=== PATIENT | male | born 1980 | race Two or more races ===

== ENCOUNTER 2016-08-11 00:43 | Emergency (ER) | payer OTHER ==
[~2016-08-11] VITALS: Ht 175.3 cm; Wt 83.9 kg
[~2016-08-11 00:43] MED LIST: FLONASE ALLERG9.9 ML NS; PRILOSEC OTC20 MG ORAL
[2016-08-11] MEDS ORDERED: Ketorolac 30mg Inj IV ONE (01:00)
[2016-08-11 01:25] LABS: APPEARANCE,URINE CLEAR; KETONES,URINE NEGATIVE (NEGATIVE); LEUKOCYTE ESTERASE ,URINE NEGATIVE (NEGATIVE); NITRITE,URINE NEGATIVE (NEGATIVE); PH,URINE 7 (4.5-8.0); PROTEIN,URINE NEGATIVE (NEGATIVE); UROBILINOGEN,URINE NORMAL MG/DL (0.0-1.0)
[2016-08-11 01:29] LABS: EOSINOPHILS % (AUTO) 0.9 % (0.0-3.0); LYMPHOCYTES % (AUTO) 16.3 % (20.0-45.0); MEAN CORPUSCULAR HGB CONC 34.5 G/DL (32.0-36.0); MEAN CORPUSCULAR VOLUME 87 FL (80-99); MEAN PLATELET VOLUME 6.4 FL (6.5-10.1); MONOCYTES % (AUTO) 4.4 % (1.0-10.0); NEUTROPHILS % (AUTO) 77.4 % (45.0-75.0); PLATELET COUNT 229 K/UL (150-450); RED BLOOD COUNT 4.72 M/UL (4.70-6.10); RED CELL DISTRIBUTION WIDTH 11.1 % (11.6-14.8); WHITE BLOOD COUNT 10.3 K/UL (4.8-10.8)
[2016-08-11 01:30] VITALS: BP 129/85
[2016-08-11 01:40] LABS: ALANINE AMINOTRANSFERASE 25 U/L (3-41); ALBUMIN/GLOBULIN RATIO 1.8 (1.0-2.7); ANION GAP 17 (5-15); ASPARTATE AMINO TRANSFERASE 28 U/L (5-40); CALCIUM 9.2 mg/dL (8.6-10.2); CARBON DIOXIDE 23 mEQ/L (20-30); CHLORIDE 99 mEQ/L (98-107); CREATININE 0.9 mg/dL (0.7-1.2); GLOMERULAR FILTRATION RATE > 60 mL/min (>60); HEMOLYSIS 5; LIPASE 115 U/L (< 60); POTASSIUM 3.7 mEQ/L (3.4-4.9); SODIUM 139 mEQ/L (135-145); TOTAL PROTEIN 6.6 g/dL (6.6-8.7)
[2016-08-11 01:43] LABS: BACTERIA,URINE OCCASIONAL /HPF; SQUAMOUS EPITHELIAL CELL,UR OCCASIONAL /LPF (NONE/OCC); WBC,URINE 0-2 /HPF (0 - 0)
[2016-08-11] MEDS ORDERED: Morphine Sulfate 4mg/ml Inj IVP ONE (02:00)
[2016-08-11] MEDS ORDERED: Mylanta II UD 30ml ORAL ONE (02:00)
[2016-08-11] MEDS ORDERED: Lidocaine 2% Visc 15ml soln ORAL ONE (02:00)
--- NOTE | 2016-08-11 02:01 | Emergency Room Report ---
History of Present Illness General Chief Complaint: Dyspnea/Respdistress Source: Patient Present Illness HPI This is a 36-year-old male with no cerebrovascular medical history. He presents with chief complaint of abdominal pain with vomiting and diarrhea. Onset for last 2-3 days. Initially was diarrhea but now mostly vomiting. He said is retching. Unable to keep anything down. [place] weak. Now complaining of burning sensation of his chest into his throat. Pain is 9/10. No bloody emesis. No bloody diarrhea. Denies any other complaint. Allergies: Coded Allergies: NO KNOWN ALLERGIES (Verified Allergy, Unknown, 08/21/15) Patient History Past Medical History: see triage record, old chart reviewed Past Surgical History: none Pertinent Family History: none Social History: Denies: smoking Immunizations: other Reviewed Nursing Documentation: PMH: Agreed, PSxH: Agreed Nursing Documentation-PMH Past Medical History: No Stated History Hx Cardiac Problems: No Hx Cancer: No Hx Gastrointestinal Problems: Yes - HEART BURN Hx Neurological Problems: No Review of Systems Eye: Denies: blurred vision, eye pain ENT: Denies: ear pain, nose congestion, throat swelling Respiratory: Denies: cough, shortness of breath Cardiovascular: Denies: chest pain, palpitations Gastrointestinal: Reports: abdominal pain, diarrhea, nausea, vomiting Musculoskeletal: Denies: back pain, joint pain Skin: Denies: rash Neurological: Denies: headache, numbness Endocrine: Denies: increased thirst, increased urine Hematologic/Lymphatic: Denies: easy bruising All Other Systems: negative except mentioned in HPI Physical Exam Vital Signs Date Time Temp Pulse Resp B/P Pulse Ox O2 Delivery O2 Flow Rate FiO2 08/11/16 00:50 98.4 69 14 129/85 99 Room Air vitals normal Sp02 EP Interpretation: reviewed, normal General Appearance: well appearing, alert, mild distress - From pain Head: normocephalic, atraumatic Eyes: bilateral eye EOMI, bilateral eye PERRL ENT: hearing grossly normal, normal pharynx Neck: full range of motion, supple, no meningismus Respiratory: chest non-tender, lungs clear, normal breath sounds Cardiovascular #1: regular rate, rhythm, no murmur Gastrointestinal: normal bowel sounds, no mass, no organomegaly, no bruit, non- distended, tenderness - Epigastric and left upper quadrant Musculoskeletal: back normal, gait/station normal, normal range of motion Psychiatric: mood/affect normal Skin: warm/dry Medical Decision Making Diagnostic Impression: Primary Impression: Abdominal pain Qualified Codes: R10.13 - Epigastric pain ER Course Patient with abdominal pain with vomiting and diarrhea. Most likely gastroenteritis. Lipase is slightly elevated. No evidence of gallstone. He is not a drinker. CT scan unremarkable. He felt better now. We'll discharge home. I see no evidence of acute abdomen or obstruction. No infectious process that require antibiotics. Lab Results Impression labs with slight elevation of lipase CT/MRI/US Diagnostic Results CT/MRI/US Diagnostic Results : Imaging Test Ordered: CT abdomen and pelvis Impression read by radiologist. No acute process. Last Vital Signs Date Time Temp Pulse Resp B/P Pulse Ox O2 Delivery O2 Flow Rate FiO2 08/11/16 01:30 75 21 129/85 98 Room Air 08/11/16 00:50 98.4 Status: improved Disposition: HOME, SELF-CARE Condition: Stable Scripts Omeprazole Magnesium (PRILOSEC OTC) 20 Mg Tablet. 20 MG ORAL DAILY, #14 TAB Prov: SANTOSH PALAFOX M.D. 08/11/16 Hydrocodone/Acetaminophen 5-325* (HYDROCODONE/ACETAMINOPHEN 5-325*) 1 Each Tablet 1 TAB ORAL Q6H Y for For Pain, #20 TAB 0 Refills Prov: SANTOSH PALAFOX M.D. 08/11/16 Additional Instructions: Followup with your in 2-3 days. Return if symptom worsen. SANTOSH PALAFOX M.D. Aug 11, 2016 02:01
[2016-08-11 02:30] VITALS: BP 124/67
[2016-08-11 03:30] VITALS: BP 96/69
[2016-08-11] MEDS ORDERED: HYDROCODON-ACE1 EA15 ORAL (03:30)
[2016-08-11] MEDS ORDERED: PRILOSEC OTC20 MG ORAL (03:30)
--- NOTE | 2016-08-11 09:23 | Diagnostic Imaging Report ---
Indication: Abdominal pain Technique: CT scan of the abdomen and pelvis utilizing automated exposure control with intravenous contrast. Axial, sagittal and coronal images were obtained. CT dose: Total DLP 1234 mGycm; CTDI vol 23.9 mGy Comparison: None Findings: Evaluation of the bowel is limited without oral contrast material. Lung bases are clear. There is a 6 mm hypodensity within the right lobe of liver too small to characterize. Adrenal glands, spleen and pancreas are unremarkable. No CT evident gallstones are seen. A left renal cyst measures 1.5 cm. There is no hydronephrosis. No renal or ureteral calculi are identified. Tiny fat-containing bilateral inguinal hernias are seen, right greater than left. The abdominal aorta is normal in caliber. Small bowel loops are normal in caliber. There is no appendicitis. There is colonic diverticulosis without diverticulitis. There is no free intraperitoneal fluid or air. Prostate calcifications are present. Mild degenerative changes of the spine are seen. Impression: No acute abnormality. Colonic diverticulosis without diverticulitis. Left renal cyst. Approximately 0.6 cm hypodense lesion within the right lobe of the liver too small to characterize possibly a cyst. Clinical correlation recommended. The CT scanner at [facility] is accredited by the [employer] and the scans are performed using protocols designed to limit radiation exposure to as low as reasonably achievable to attain images of sufficient resolution adequate for diagnostic evaluation.
== END 2016-08-11 03:30 | disposition home or self-care (01) ==
LOC: EMR 02:56
DX: R10.13 Epigastric pain (principal); R10.12 Left upper quadrant pain; R11.2 Nausea with vomiting, unspecified; R19.7 Diarrhea, unspecified; N28.1 Cyst of kidney, acquired; K57.30 Diverticulosis of large intestine without perforation or abscess without bleeding
CPT/HCPCS: 36415; 74177; 80053; 81003; 83690; 85025; 96374; 96375; 99284; J1885; J2270; J2405; Q9967

== ENCOUNTER 2016-09-15 13:20 | Emergency (ER) | payer OTHER ==
[~2016-09-15] VITALS: Ht 175.3 cm; Wt 77.1 kg
[~2016-09-15 13:20] MED LIST changes: +HYDROCODON-ACE1 EA15 ORAL
[2016-09-15 14:04] VITALS: BP 127/84
[2016-09-15] MEDS ORDERED: mylanta PO (14:09)
[2016-09-15] MEDS ORDERED: LR 1000ml 1,000 ML IV STA (15:05)
[2016-09-15] MEDS ORDERED: Tubing IV Cassette IV ONE (15:12)
[2016-09-15] MEDS ORDERED: Morphine Sulfate 4mg/ml Inj IVP ONE (15:15)
[2016-09-15 15:40] LABS: EOSINOPHILS % (AUTO) 0.1 % (0.0-3.0); LYMPHOCYTES % (AUTO) 14.5 % (20.0-45.0); MEAN CORPUSCULAR HEMOGLOBIN 31.3 PG (27.0-31.0); MEAN CORPUSCULAR HGB CONC 34.7 G/DL (32.0-36.0); MEAN CORPUSCULAR VOLUME 90 FL (80-99); MONOCYTES % (AUTO) 5.7 % (1.0-10.0); NEUTROPHILS % (AUTO) 78.8 % (45.0-75.0); PLATELET COUNT 289 K/UL (150-450); RED BLOOD COUNT 5.19 M/UL (4.70-6.10); RED CELL DISTRIBUTION WIDTH 11.1 % (11.6-14.8); WHITE BLOOD COUNT 6.4 K/UL (4.8-10.8)
[2016-09-15 15:58] LABS: ALANINE AMINOTRANSFERASE 15 U/L (3-41); ALBUMIN/GLOBULIN RATIO 1.8 (1.0-2.7); ANION GAP 16 (5-15); ASPARTATE AMINO TRANSFERASE 18 U/L (5-40); CALCIUM 9.8 mg/dL (8.6-10.2); CARBON DIOXIDE 26 mEQ/L (20-30); CHLORIDE 99 mEQ/L (98-107); GLOMERULAR FILTRATION RATE > 60 mL/min (>60); HEMOLYSIS 62; LIPASE 21 U/L (< 60); SODIUM 141 mEQ/L (135-145); TOTAL PROTEIN 8.4 g/dL (6.6-8.7)
[2016-09-15 16:05] LABS: APPEARANCE,URINE SLIGHTLY CLOUDY; KETONES,URINE 4+ (NEGATIVE); LEUKOCYTE ESTERASE ,URINE NEGATIVE (NEGATIVE); NITRITE,URINE NEGATIVE (NEGATIVE); PH,URINE 6.5 (4.5-8.0); PROTEIN,URINE NEGATIVE (NEGATIVE); UROBILINOGEN,URINE NORMAL MG/DL (0.0-1.0)
[2016-09-15 16:10] LABS: BACTERIA,URINE OCCASIONAL /HPF; MUCUS,URINE FEW /LPF (NONE/OCC); SQUAMOUS EPITHELIAL CELL,UR OCCASIONAL /LPF (NONE/OCC); WBC,URINE 0-2 /HPF (0 - 0)
[2016-09-15] MEDS ORDERED: ZOFRAN ODT4 MG ORAL (16:54)
[2016-09-15] MEDS ORDERED: PEPCID20 MG ORAL (16:54)
[2016-09-15] MEDS ORDERED: BENTYL10 MG ORAL (16:54)
[2016-09-15 16:57] VITALS: BP 127/84
--- NOTE | 2016-09-15 17:31 | Emergency Room Report ---
History of Present Illness General Chief Complaint: Abdominal Pain Source: Patient Present Illness HPI [id number] [employer] patient with 3 days nausea, retching, generalized abd pain, multiple episodes of watery diarrhea. History of "gastritis" from years ago. Not on PPI or antacid. Never had scope. States he was admitted 1 month ago for pancreatitis. However EMR shows DC from ER. Mild lipase elevation. CTAP was negative for pancreatitis. Patient also endorses known hematuria, hasnt followed up with Urology previously. Smokes MJ. Denies ETOH abuse Allergies: Coded Allergies: NO KNOWN ALLERGIES (Verified Allergy, Unknown, 08/21/15) Patient History Past Medical History: none Past Surgical History: none Pertinent Family History: none Social History: Reports: drug use, smoking, Denies: alcohol use Immunizations: UTD Reviewed Nursing Documentation: PMH: Agreed, PSxH: Agreed Nursing Documentation-PMH Hx Cardiac Problems: No Hx Cancer: No Hx Gastrointestinal Problems: Yes - Pancreatitis Hx Neurological Problems: No Review of Systems All Other Systems: negative except mentioned in HPI Physical Exam Vital Signs Date Time Temp Pulse Resp B/P Pulse Ox O2 Delivery O2 Flow Rate FiO2 09/15/16 14:04 98.2 91 18 127/84 99 Room Air Sp02 EP Interpretation: reviewed, normal General Appearance: normal inspection, well appearing, no apparent distress, alert, GCS 15, non-toxic Head: normocephalic, atraumatic Eyes: bilateral eye EOMI, bilateral eye PERRL ENT: normal ENT inspection, hearing grossly normal, normal voice Neck: normal inspection, full range of motion, supple, no bony tend Respiratory: normal inspection, lungs clear, normal breath sounds, no respiratory distress, no retraction, no wheezing Cardiovascular #1: regular rate, rhythm, no edema Gastrointestinal: normal inspection, normal bowel sounds, soft, no guarding, no hernia, other - generalized abd ttp Genitourinary: no CVA tenderness Musculoskeletal: normal inspection, back normal, normal range of motion, Dk' s Sign negative Neurologic: normal inspection, alert, oriented x3, responsive, spout liner III-XII nml as tested, motor strength/tone normal, speech normal Psychiatric: normal inspection, judgement/insight normal, mood/affect normal Skin: normal inspection, normal color, no rash Medical Decision Making Diagnostic Impression: Primary Impression: Gastroenteritis Additional Impression: Hematuria Qualified Codes: R31.1 - Benign essential microscopic hematuria ER Course Abd pain - VSS. Afebrile - Lipase, LFTs negative. Hematuria in UA - Feels better after medication. - Abd exam non-focal now - Doubt kidney stones as not seen in CT previously. No bladder mass either. - Recommend PMD followup for Urology referral for hematuria eval - Will DC with Rx for pepcid, zofran, bentyl for likely gastroenteritis Last Vital Signs Date Time Temp Pulse Resp B/P Pulse Ox O2 Delivery O2 Flow Rate FiO2 09/15/16 16:57 98.2 91 18 127/84 99 Room Air Status: improved Disposition: HOME, SELF-CARE Condition: Improved Scripts Dicyclomine Hcl* (BENTYL*) 10 Mg Capsule 10 MG ORAL BID for 7 Days, #14 CAP Prov: MÓNICA GORDON M.D. 09/15/16 Ondansetron Odt* (ZOFRAN ODT*) 4 Mg Tab.rapdis 4 MG ORAL Q6H Y for Nausea & Vomiting for 7 Days, #14 TAB 0 Refills Prov: MÓNICA GORDON M.D. 09/15/16 Famotidine (PEPCID) 20 Mg Tablet 20 MG ORAL BID for 30 Days, #60 TAB 0 Refills Prov: MÓNICA GORDON M.D. 09/15/16 Patient Instructions: Viral Gastroenteritis, Adult, Gastritis, Adult Additional Instructions: - Take pepcid twice daily for 1 month - Take zofran and bentyl as needed for nausea/diarrhea - Follow up with your primary doctor for Urology referral for blood in urine MÓNICA GORDON M.D. Sep 15, 2016 17:31
== END 2016-09-15 16:57 | disposition home or self-care (01) ==
LOC: EMR 14:45
DX: K52.9 Noninfective gastroenteritis and colitis, unspecified (principal); R31.1 Benign essential microscopic hematuria; F17.200 Nicotine dependence, unspecified, uncomplicated; F12.10 Cannabis abuse, uncomplicated
CPT/HCPCS: 36415; 80053; 81003; 83690; 85025; 96374; 96375; 99284; J2270; J2405; J7120